=== PATIENT | female | born 1985 | race Two or more races ===

== ENCOUNTER 2022-05-07 02:18 | Inpatient (IN) | payer OTHER ==
[~2022-05-07] VITALS: Ht 175.3 cm; Wt 102.5 kg
[2022-05-07] MEDS ORDERED: PRENATAL TABLE1 EAC1 PO (02:31)
[2022-05-07] MEDS ORDERED: SYNTHROID50 MCG PO (02:32)
[2022-05-07] MEDS ORDERED: VALACYCLOVIR1000 MG PO (02:33)
[2022-05-07] MEDS ORDERED: FOLIC ACID20 MG PO (02:33)
== END 2022-05-10 10:12 | disposition home or self-care (01) | DRG 788 ==
LOC: LDR 02:18 → O/R 16:38 → OB/GYN 18:01
PROVIDERS: ADMIT Obstetrics & Gynecology; ATTEND Obstetrics & Gynecology
PROC: 4A1HXCZ Monitoring of Products of Conception, Cardiac Rate, External Approach (ICD-10-PCS; 2022-05-07)
PROC: 10D00Z1 Extraction of Products of Conception, Low, Open Approach (ICD-10-PCS; principal; 2022-05-08)
DX: O36.8330 Maternal care for abnormalities of the fetal heart rate or rhythm, third trimester, not applicable or unspecified (principal); O99.824 Streptococcus B carrier state complicating childbirth; Z3A.38 38 weeks gestation of pregnancy; Z37.0 Single live birth; Z20.822 Contact with and (suspected) exposure to COVID-19